=== PATIENT | female | born 1975 | race Caucasian/White ===

== ENCOUNTER → 2016-11-28 | Outpatient (CLI) | payer OTHER ==
[~2016-11-28] MED LIST: ASPIRIN81 MG PO; CELEXA20 MG PO; DICLOFENAC; FLOVENT7.9 GM INH; JANUVIA; LANTUS100 U/ML; LIDOCAINE35.44 GM TP; LISINOPRIL; MORPHINE SULFAT15 MG PO; PRILOSEC40 MG PO; PRINIVIL20 M1 PO; PULMICORT0.25 MG/2; SUPER B COMPLEX1 CAP PO; TYLENOL #3 PO; VITAMIN B12 PO; VITAMIN D1000 UNI1 PO; VOLTAREN50 MG PO; XOPENEX1.25 MG/3 IH; XOPENEX45 MCG/15 IH; ZANTAC150 MG PO; ZYRTEC; ZYRTEC10 M2 PO
--- NOTE | ~2016-11-28 | MY26 ---
[facility] A Service of [facility] RADIOLOGY TEXT RESULTS PATIENT: DEACON MATHEW LOCATION: [facility] : 71 UNIT #: [id number] AGE: [address]: ROXANNE AL APRN SEX: F ORDER DR: [id number] [facility] [address] [place], [place] [address] [id number] O MR#: [id number] Acc #: [id number] NAME: DEACON MATHEW : 1975 SEX: F STUDY DATE/TIME: 11/28/2016 14:52 UNIT: [facility] ROOM: STUDY DESCRIPTION: [facility] DIAGNOSTIC W/ CAD BILAT Attending Physician: Roxanne Al Aprn Ordering Physician: Roxanne Al Aprn Primary Care Physician: Melquiades Hare M.D. MEDICAL IMAGING REPORT This report is preliminary unless electronic signature is present EXAM Right breast digital diagnostic mammogram and Left breast digital screening mammogram with CAD DATE: 11/28/2016 HISTORY 41-year-old female for followup of probably benign right breast nodule. COMPARISON Bilateral digital screening mammogram 07/06/2015 right breast digital diagnostic mammogram and ultrasound 08/12/2015. FINDINGS CC, MLO views were obtained of each breast and true ML views obtained of the right breast. The study was performed utilizing digital technique and reviewed with an FDA-approved CAD device. Scattered fibroglandular tissue is present bilaterally. 5-6 mm well-circumscribed nodule in the central right breast just slightly lateral and anterior to the posterior nipple line appears unchanged compared to the most remote study from 07/06/2015. It was sonographically occult on prior examination. No associated architectural distortion. No microcalcifications. IMPRESSION BIRADS 2. Benign findings. The circumscribed nodule in the central right breast is unchanged compared to 07/06/2015, most in keeping with benign finding. There are no new findings within either breast. It is recommended patient return for routine bilateral screening mammogram in November 2017. Findings and recommendations were discussed with the patient today in the radiology apartment. [facility] A Service of [facility] RADIOLOGY TEXT RESULTS PATIENT: DEACON MATHEW LOCATION: [facility] : 71 UNIT #: [id number] AGE: [address]: ROXANNE AL APRN SEX: F ORDER DR: Patients over the age of 40 are entered into a reminder system with target due date for the next mammogram. A result letter will also be sent to the patient. BIRADS: 2, benign findings. Dictated by... Sarahi Reese M.D. THIS IS AN ELECTRONICALLY VERIFIED REPORT Sarahi Reese M.D. at 12/01/2016 8:34 AM JEWEL/robin TD: 11/29/2016 03:55 JOB #: [id number] MEDICAL IMAGING REPORT Page 1 of 1 COPY
== END | disposition home or self-care (01) ==
LOC: CMAM 14:38
DX: N63 Unspecified lump in breast (principal)
CPT/HCPCS: G0204